=== PATIENT | male | born 1995 | race African-American/Black ===

== ENCOUNTER 2018-08-28 12:02 | Emergency (ER) | payer MEDICAID, OTHER ==
[2018-08-28 12:24] VITALS: BP 123/68
[2018-08-28] MEDS ORDERED: CEFTRIAXONE INJ 250 MG VIAL IM ONE (12:37)
[2018-08-28] MEDS ORDERED: AZITHROMYCIN 250 MG TABLET PO ONE (12:37)
[2018-08-28] MEDS ORDERED: LIDOCAINE 1% INJ-PF (10 MG/ML) 30 ML SDV INJ ONE (12:37)
--- NOTE | 2018-08-28 12:42 | ER Document Report ---
HPI - HPI Time Seen by Provider: 08/28/18 12:36 Pain Level: 4 Context: Patient is a 22 male presents to the emergency department with a chief complaint of STD check. Patient states that he does have multiple partners and does use condoms. Patient states recently his condom did not break. Patient states he has not been told by his partners that they are having any symptoms. Patient states that last Saturday he felt itching feeling to the tip of his penis after urination. Patient denies testicular pain or penile pain. Patient denies penile discharge. Patient denies rash, fever or chills. Patient states he just wants to be checked and treated. Denies any open lesions or wounds. - CONSTITUTIONAL Constitutional: DENIES: Fever, Chills - EENT EENT: DENIES: Sore Throat, Ear Pain, Eye problems - NEURO Neurology: DENIES: Headache, Weakness, Vision blurred, Dizzinesss / Vertigo - CARDIOVASCULAR Cardiovascular: DENIES: Chest pain - RESPIRATORY Respiratory: DENIES: Trouble Breathing, Coughing - GASTROINTESTINAL Gastrointestinal: DENIES: Abdominal Pain, Black / Bloody Stools - URINARY Urinary: REPORTS: Dysuria - SCRATCHY FEELING AFTER URINATI - MUSCULOSKELETAL Musculoskeletal: DENIES: Extremity pain Past Medical History - General Information source: Patient - Social History Smoking Status: Unknown if Ever Smoked Chew tobacco use (# tins/day): No Frequency of alcohol use: Occasional Drug Abuse: None Lives with: Family Family History: Reviewed & Not Pertinent Patient has suicidal ideation: No Patient has homicidal ideation: No - Past Medical History Cardiac Medical History: Reports: None Pulmonary Medical History: Reports: None EENT Medical History: Reports: None Neurological Medical History: Reports: None Endocrine Medical History: Reports: None Renal/ Medical History: Reports: None. Denies: Hx Peritoneal Dialysis Malignancy Medical History: Reports None GI Medical History: Reports: None Musculoskeletal Medical History: Reports None Skin Medical History: Reports None Psychiatric Medical History: Reports: None Traumatic Medical History: Reports: None Infectious Medical History: Reports: None Surgical Hx: Negative Past Surgical History: Reports: None - Immunizations Hx Diphtheria, Pertussis, Tetanus Vaccination: Yes Vertical Provider Document - CONSTITUTIONAL Agree With Documented VS: Yes Exam Limitations: No Limitations General Appearance: No Apparent Distress Notes: GENERAL: Well-appearing, well-nourished and in no acute distress. HEAD: Atraumatic, normocephalic. EYES: Pupils equal round and reactive to light, extraocular movements intact, sclera anicteric, conjunctiva are normal. ENT: TMs normal, nares patent, oropharynx clear without exudates. Moist mucous membranes. NECK: Normal range of motion, supple without lymphadenopathy or JVD. LUNGS: Breath sounds clear to auscultation bilaterally and equal. No wheezes rales or rhonchi. HEART: Regular rate and rhythm without murmurs, rubs or gallops. ABDOMEN: Soft, nontender, normoactive bowel sounds. No guarding, no rebound. No masses appreciated. BACK: No cervical, thoracic, lumbar midline tenderness. No saddle anesthesia, normal distal neurovascular exam. GENITOURINARY: No lesion noted to the penis, clear drainage noted at the tip of the penis, testicles palpated without discomfort, normal cremastric reflex. EXTREMITIES: Normal range of motion, no pitting or edema. No clubbing or cyanosis. NEUROLOGICAL: Cranial nerves II through XII grossly intact. Normal speech, normal gait. PSYCH: Normal mood, normal affect. SKIN: Warm, Dry, normal turgor, no rashes or lesions noted. - INFECTION CONTROL TRAVEL OUTSIDE OF THE [place] IN LAST 30 DAYS: No Course - Re-evaluation Re-evalutation: 08/28/18 12:39 Explained to patient that we do not normally test for HIV or hepatitis or any other blood-borne sexually transmitted diseases in the emergency department without symptoms. I did explain to the patient that he can go to the health department to have test performed. I will go ahead and treat the patient prophylactically for gonorrhea and chlamydia. I did discuss this with the patient. Will obtain a urine specimen to test for these STIs. I did inform the patient to not have sexual intercourse for the next 2 weeks if his tests are positive and that he will need a recheck to make sure the infection has resolved. - Vital Signs Vital signs: Temp Pulse Resp BP Pulse Ox 97.9 F 68 20 123/68 100 08/28/18 12:23 08/28/18 12:23 08/28/18 12:23 08/28/18 12:23 08/28/18 12:23 Discharge - Discharge Clinical Impression: Concern about STD in male without diagnosis Condition: Stable Disposition: HOME, SELF-CARE Additional Instructions: You need to use protection every time you have sex. Failure to do so can result in transmission of infections or unintended . You have been treated for an sexually transmitted infection (STI) today. All of your partners should be tested and treated as they are also likely to be infected. Please return if you develop abdominal pain, fever, persistent vomiting, or any other symptoms that are concerning to you. They we did treat you for gonorrhea and chlamydia. You will be contacted if the results are positive. Referrals: RIO HERNANDEZ MD [[id number]] - Follow up as needed
[2018-08-28 14:34] LABS: CHLAM PCR DETECTED (NOT DETECT)
== END 2018-08-28 13:10 | disposition home or self-care (01) ==
LOC: ER 12:02
DX: Z20.2 Contact with and (suspected) exposure to infections with a predominantly sexual mode of transmission (principal); R30.0 Dysuria; R36.9 Urethral discharge, unspecified
CPT/HCPCS: 99283; 96372; 87491; 87591; J3490; J0696

== ENCOUNTER 2019-01-27 23:08 | Emergency (ER) | payer SELFPAY ==
[2019-01-27 23:14] VITALS: BP 117/70
--- NOTE | 2019-01-27 23:16 | ER Document Report ---
ED Medical Screen (RME) - General Chief Complaint: STD Exposure Stated Complaint: STD EXPOSURE Time Seen by Provider: 01/27/19 23:11 Mode of Arrival: Ambulatory Information source: Patient Notes: This 23-year-old male with history of STD in the past presents tonight with request for STD testing. He denies all symptoms denies abdominal pain denies fever vomiting diarrhea. Denies testicular pain. Denies penile discharge. Reports he is sexually active does wear a condom. He denies all symptoms. He just wants to be checked out. I have greeted and performed a rapid initial assessment of this patient. A comprehensive ED assessment and evaluation of the patient, analysis of test results and completion of the medical decision making process will be conducted by additional ED providers. Dictation of this chart was performed using voice recognition software; therefore, there may be some unintended grammatical errors. TRAVEL OUTSIDE OF THE [place] IN LAST 30 DAYS: No - Related Data Allergies/Adverse Reactions: No Known Allergies Allergy (Unverified 08/28/18 12:19) Past Medical History Renal/ Medical History: Denies: Hx Peritoneal Dialysis - Immunizations Hx Diphtheria, Pertussis, Tetanus Vaccination: Yes Physical Exam - Vital signs Vitals: Temp Pulse Resp BP Pulse Ox 98.9 F 88 16 117/70 100 01/27/19 23:12 01/27/19 23:12 01/27/19 23:12 01/27/19 23:12 01/27/19 23:12 Course - Vital Signs Vital signs: Temp Pulse Resp BP Pulse Ox 98.9 F 88 16 117/70 100 01/27/19 23:12 01/27/19 23:12 01/27/19 23:12 01/27/19 23:12 01/27/19 23:12
[2019-01-28 13:49] LABS: CHLAM PCR NOT DETECTED (NOT DETECT)
== END 2019-01-28 01:25 | disposition left against medical advice (07) ==
LOC: ER 23:08
DX: Z53.21 Procedure and treatment not carried out due to patient leaving prior to being seen by health care provider (principal); Z20.2 Contact with and (suspected) exposure to infections with a predominantly sexual mode of transmission
CPT/HCPCS: 87491; 87591; 99281

== ENCOUNTER 2019-04-16 00:05 | Emergency (ER) | payer SELFPAY ==
[2019-04-16 00:17] VITALS: BP 146/58
== END 2019-04-16 03:43 | disposition left against medical advice (07) ==
LOC: ER 00:05
DX: Z53.21 Procedure and treatment not carried out due to patient leaving prior to being seen by health care provider (principal)